=== PATIENT | female | born 1935 | race Caucasian/White ===

== ENCOUNTER → 2017-03-04 | Outpatient (CLI) | payer MEDICARE, BC ==
--- NOTE | 2017-03-04 11:41 | RAD ---
Chest, 2 views, 03/04/2017: History: Chronic cough Comparison is made to a study from 03/04/2017. The heart size and pulmonary vascularity are normal. There is calcific plaquing of the aorta with prominence of the aortic knob, unchanged A calcified granuloma is present in the left upper lobe. No pulmonary infiltrates are seen. There is no evidence of pleural fluid. Surgical clips are projected over the left chest. There is mild spurring in the spine. IMPRESSION: 1. Aortic atherosclerosis. 2. No acute cardiopulmonary abnormality is detected.
== END | disposition home or self-care (01) ==
LOC: DXRADRC 11:21
PROVIDERS: ATTEND Family Medicine
DX: I70.0 Atherosclerosis of aorta (principal); R91.8 Other nonspecific abnormal finding of lung field; R05 Cough
CPT/HCPCS: 71020

== ENCOUNTER → 2017-08-18 | Outpatient (CLI) | payer MEDICARE, BC ==
--- NOTE | 2017-08-18 13:48 | RAD ---
Bone densitometry scan, 08/18/2017: History: Osteoporosis screening, ovarian failure The lumbar spine and right hip were examined utilizing a DEXA technique. The bone mineral density in the lumbar spine as measured from the L1-L4 levels is 1.12 g/sq cm. This yields a T score of -0.5 which is in the normal range. On 03/28/2014 the lumbar spine T score was -1.0. The total T score at the right hip is -2.4, compatible with osteopenia. This value has worsened since the 03/28/2014 study at which time it was -1.6. IMPRESSION: 1. Worsening osteopenia at the right hip 2. Normal bone mineral density measurements in the lumbar spine, however, hypertrophic degenerative change may be elevating these measurements into the normal range.
== END | disposition home or self-care (01) ==
LOC: DXRAD 10:11
PROVIDERS: ATTEND Nurse Practitioner Family
DX: M85.88 Other specified disorders of bone density and structure, other site (principal)
CPT/HCPCS: 77080